=== PATIENT | female | born 1960 | race Caucasian/White ===

== ENCOUNTER 2024-04-21 00:45 | Emergency (ER) | payer BC, SELFPAY ==
[2024-04-21 00:47] VITALS: BP 187/84
[2024-04-21 01:51] LABS: % Basophils 0.2 % (0-2); % Immature Granulocytes 0.2 % (0-0.5); % Lymphocytes 8.3 % (20.5-51.1); % Monocytes 2.8 % (1.7-9.3); % Neutrophils 88.5 % (42.2-75.2); Absolute Lymphocytes 0.8 10^3/uL (1.2-3.4); Absolute Monocytes 0.3 10^3/uL (0.1-0.6); Absolute Neutrophils 8.3 10^3/uL (1.4-6.5); Hematocrit 38.8 % (37.0-47.0); Hemoglobin 13.9 g/dL (12.0-16.0); Mean Corp Hgb Conc. 35.8 g/dL (33.0-37.0); Mean Corpuscular Hgb 32.6 pg (27.0-31.0); Mean Corpuscular Volume 91.1 fL (81.0-99.0); Mean Platelet Volume 9.4 fL (7.4-10.4); Nucleated Red Blood Cells % 0 %; Platelet Count 290 10^3/uL (130-400); Red Blood Cell Count 4.26 10^6/uL (4.20-5.40); Red Cell Dist. Width 12.7 % (11.5-14.5); White Blood Cell Count 9.4 10^3/uL (4.8-10.8)
[2024-04-21 02:03] LABS: ALT (SGPT) 20 U/L (0-35); AST (SGOT) 26 U/L (14-36); Albumin 4.6 g/dl (3.5-5.0); Alkaline Phosphatase 100 U/L (38-126); Blood Urea Nitrogen 14 mg/dl (7-17); Calcium 9.6 mg/dl (8.4-10.2); Carbon Dioxide 25 mmol/L (22-30); Chloride 105 mmol/L (98-107); Glucose 165 mg/dl (70-99); Lipase 47 U/L (23-300); Potassium 4.1 mmol/L (3.5-5.1); Sodium 138 mmol/L (135-145); Total Bilirubin 0.9 mg/dl (0.2-1.3); eGFR > 60.00
--- NOTE | 2024-04-21 02:15 | ED.GENMED ---
History of Present Illness
<LANCE Orr - Last Filed: 04/21/24 07:10>
General
Chief Complaint: Abdominal Symptoms
Source: patient
Exam Limitations: none
Time Seen by Provider: 04/21/24 02:21
Nursing documentation reviewed up to this point in time: agreed with
History of Present Illness
History of Present Illness:
63 year old female presents for evaluation of abdominal pain, nausea, and vomiting x 12 hours. Pt reports that she has a history of chronic diarrhea as well as SIBO which was diagnosed at [facility] 3 years ago per pt. She endorses associated loss of
appetite, and has been unable to keep solids and liquids down. She endorses 10+ bouts of vomiting over the last 12 hours. Pt states her abdominal pain is located in the RUQ and LUQ, and currently rates her pain as 7/10. She has not tried any
medications for her pain. She notes that she has been able to move her bowels over the last 12 hours, and denies diarrhea and blood in the stool. No sick contacts or recent travel reported.
Past History
<LANCE Orr - Last Filed: 04/21/24 07:10>
Past History
ED Past Medical History: None; Negative Hypercholesterolemia, IDDM or NIDDM
ED Past Surgical History: None; Negative Appendectomy
Social History
Tobacco: Non-smoker
Alcohol: Occasional
Drug: None
Personal:
Employment: Employed
Family History
Family History: Other (Noncontributory)
Review of Systems
<LANCE Orr - Last Filed: 04/21/24 07:10>
Review of Systems
Allergies reviewed?: Yes
Constitutional: Reports no symptoms
EENT: Reports no symptoms
Respiratory: Reports no symptoms
Cardiac: Reports no symptoms
ABD/GI: Reports abdominal pain, nausea, vomiting and anorexia
: Reports no symptoms
Musculoskeletal: Reports no symptoms
Skin: Reports no symptoms
Neurological: Reports no symptoms
Endocrine: Reports no symptoms
Hematologic/Lymphatic: Reports no symptoms
Psychiatric: Reports no symptoms
Phy Exam
<LANCE Orr - Last Filed: 04/21/24 07:10>
General Physical Exam
General Presentation: well appearing
General age: appears stated age
General Skin: warm
General Habitus: normal
General Mental: alert
Cardiovascular Exam
Cardiovascular Exam: regular rate/rhythm
Pulmonary Exam
Pulmonary Exam: lungs clear and no respiratory distress
Gastrointestinal Exam
Gastrointestinal Exam: normal bowel sounds, no masses and tender
Palpation: left upper quadrant: Moderate tenderness, right upper quadrant: Moderate tenderness and right lower quadrant: Moderate tenderness
Auscultation of Abdomen: normal
Neurological Exam
Neurological Exam: alert and oriented x3
Skin Exam
Skin Exam: normal color and warm/dry
Course
<LANCE Orr - Last Filed: 04/21/24 07:10>
Orders/Labs/Results
Orders:
Orders
04/21/24 01:45
Complete Blood Count/With Diff Urgent
Comprehensive Metabolic Panel Urgent
Lipase Urgent
04/21/24 03:06
0.9% Sodium Chloride 1000 ml [Nss] 1,000 ml IV BOLUS
Ketorolac [Toradol] 15 mg IV NOW STA
Ondansetron Injectable [Zofran] 4 mg IV NOW STA
Pantoprazole [Protonix IV] 40 mg IV NOW STA
04/21/24 03:07
US Abdomen Complete/Upper Urgent
Comment:
Reason For Exam: acute upper abd pain N/V
Abnormal Lab Results
04/21/24
01:45
MCH 32.6 H pg
(27.0-31.0)
Absolute Neuts (auto) 8.3 H 10^3/uL
(1.4-6.5)
Absolute Lymphs (auto) 0.8 L 10^3/uL
(1.2-3.4)
Neutrophils % 88.5 H %
(42.2-75.2)
Lymphocytes % 8.3 L %
(20.5-51.1)
Glucose 165 H mg/dl
(70-99)
04/21/24 01:45
04/21/24 01:45
Vital Signs
Initial and Last Documented VS:
Initial Vital Signs
Temp Pulse Resp BP Pulse Ox
98.4 F 76 18 187/84 98
04/21/24 00:47 04/21/24 00:47 04/21/24 00:47 04/21/24 00:47 04/21/24 00:47
Last Documented Vital Signs
Temp Pulse Resp BP Pulse Ox
98.0 F 78 16 148/70 94
04/21/24 06:24 04/21/24 03:30 04/21/24 03:30 04/21/24 06:24 04/21/24 06:24
<Elissa Caldwell, DO - Last Filed: 04/21/24 07:09>
Orders/Labs/Results
Orders:
Orders
04/21/24 01:45
Complete Blood Count/With Diff Urgent
Comprehensive Metabolic Panel Urgent
Lipase Urgent
04/21/24 03:06
0.9% Sodium Chloride 1000 ml [Nss] 1,000 ml IV BOLUS
Ketorolac [Toradol] 15 mg IV NOW STA
Ondansetron Injectable [Zofran] 4 mg IV NOW STA
Pantoprazole [Protonix IV] 40 mg IV NOW STA
04/21/24 03:07
US Abdomen Complete/Upper Urgent
Comment:
Reason For Exam: acute upper abd pain N/V
Abnormal Lab Results
04/21/24
01:45
MCH 32.6 H pg
(27.0-31.0)
Absolute Neuts (auto) 8.3 H 10^3/uL
(1.4-6.5)
Absolute Lymphs (auto) 0.8 L 10^3/uL
(1.2-3.4)
Neutrophils % 88.5 H %
(42.2-75.2)
Lymphocytes % 8.3 L %
(20.5-51.1)
Glucose 165 H mg/dl
(70-99)
04/21/24 01:45
04/21/24 01:45
Vital Signs
Initial and Last Documented VS:
Initial Vital Signs
Temp Pulse Resp BP Pulse Ox
98.4 F 76 18 187/84 98
04/21/24 00:47 04/21/24 00:47 04/21/24 00:47 04/21/24 00:47 04/21/24 00:47
Last Documented Vital Signs
Temp Pulse Resp BP Pulse Ox
98.0 F 78 16 148/70 94
04/21/24 06:24 04/21/24 03:30 04/21/24 03:30 04/21/24 06:24 04/21/24 06:24
Karelylt;LANCE Orr - Last Filed: 04/21/24 07:10>
MDM/Problems Addressed
Differential Diagnosis Includes:
pancreatitis, cholecystitis, cholelithiasis, colitis, appendicitis
MDM/Problems Addressed:
Complete Blood Count/With Diff
Comprehensive Metabolic Panel
Lipase
0.9% Sodium Chloride 1000 ml [Nss] 1,000 ml IV BOLUS
Ketorolac [Toradol] 15 mg IV
Ondansetron Injectable [Zofran] 4 mg IV
Pantoprazole [Protonix IV] 40 mg IV
US Abdomen Complete/Upper
<Elissa Caldwell DO - Last Filed: 04/21/24 07:09>
*Radiology
Radiology exam reviewed: radiology read reviewed
*Pulse Oximetry
Patient hypoxic: no
*Critical Care Note
Total Time (30-74mins, 75-104mins- exclusive of procedures): Not Applicable
ED Attending Note
<LANCE Orr - Last Filed: 04/21/24 07:10>
-
Portions of this chart may have been created with voice recognition software.� Occasional wrong word or��sound alike� substitutions may have occurred due to the inherent limitations of voice recognition software.
<Elissa Caldwell DO - Last Filed: 04/21/24 07:09>
ED Attending Note
Patient seen and examined by attending physician: Yes
ED Attending Note:
This is a 63-year-old woman who presents with generalized upper abdominal pain accompanied with nausea and vomiting that began yesterday afternoon.
She admits to intermittent abdominal pain, intermittent diarrhea, follows with GI specialist at [facility]. Previous hospitalization here in 2019, was found to have terminal ileitis with partial small bowel obstruction, concern for
Crohn's disease but colonoscopy and biopsy have been negative. She states she was eventually diagnosed with SIBO via specialist at [facility].
No close contacts with similar symptoms. She denies recent travel nor recent antibiotic use.
She takes no medicines on a daily basis.
She has not had a fever nor chills.
She denies diarrhea. No dysuria and urgency and or hematuria. She denies back pain or flank pain.
GENERAL: 63-year-old woman appears her stated age, awake and alert, pleasant, appears in no acute distress. is accompanying.
EYE: anicteric
NECK: Supple, nontender, no meningismus, no significant adenopathy.
ENT: oral mucosa is moist. No rhinorrhea.
CARDIAC: Regular rate and rhythm. no murmur.
LUNGS: Clear breath sounds bilaterally, no acute respiratory distress, no wheezes/rales/rhonchi
ABDOMEN: Rotund, soft, nondistended, mild to moderate tenderness right upper quadrant as well as mild tenderness epigastric region, no r/g, no cvat. normoactive BS.
NEUROLOGICAL: Alert and oriented x3, no focal neuro deficits. Gait is steady.
SKIN: Warm and dry, normal color, skin intact. No rash.
MUSCULOSKELETAL: No C/C/E. peripheral pulses are full and equal b/l. No palpable tenderness.
PSYCH: Normal and appropriate interaction.
Concern for acute gastroenteritis, acute gastritis, biliary colic/cholecystitis. Small bowel obstruction is less likely. No prior abdominal surgeries.
Labs thus far are unremarkable, reassuring.
Patient has had no recurrent vomiting since arrival to the ED.
Will give Zofran for nausea, Toradol for pain, IV Protonix for potential gastritis and continue IV fluids.
Will check abdominal ultrasound.
04/21/2024 0708 AM
Feeling improved after medications and fluids.
Resting comfortably.
Abdomen is soft without appreciable tenderness.
Abdominal ultrasound is unremarkable.
Will discharge to home with recommendations to limit diet to clear liquids today for potential gastroenteritis.
Prescription for Zofran has been provided for as needed nausea.
May take Tylenol as needed for discomfort.
If diarrhea ensues recommend [id number] Imodium.
Return precautions discussed.
Discharge Plan
Departure
Patient Disposition: Home (Routine Discharge)
Date of Disposition: 04/21/24
Time of Disposition: 07:06
Patient with high blood pressure during this ER visit?: No
Condition: Good
Discharge Problem:
Acute upper abdominal pain, Acute gastroenteritis
Instructions: Viral gastroenteritis in adults, Clear Liquid Diet, Abdominal Pain
Prescriptions:
New
ondansetron 4 mg tablet,disintegrating
4 mg PO QID PRN (Reason: nausea and vomiting) Qty: 20 0RF
Referrals:
Rosette Galindo MD [Family Provider] - Call in 1-3 days for appt
Interventions
Interventions:
*Risk Screen - Suicide Last Done: 04/21/24 00:47
*General Assessment Last Done: 04/21/24 02:07
*Neglect/Abuse Screening Last Done: 04/21/24 00:47
ED- Fall Risk Assessment Last Done: 04/21/24 02:07
*ED COVID-19 Vaccine History Last Done: 04/21/24 02:07
XM-Aoklcm-Gxurbowwjv Assessment Last Done: 04/21/24 02:00
Discharge Date and Time
Print Language: HAITIAN
[2024-04-21] MEDS: NSS 1000 IV (03:10)
[2024-04-21] MEDS: ZOFRAN 4 MG IV (03:25)
[2024-04-21] MEDS: TORADOL 15 MG IV (03:26)
[2024-04-21] MEDS: PROTONIX IV 40 MG IV (03:28)
[2024-04-21 03:30] VITALS: BP 139/68
[2024-04-21 06:24] VITALS: BP 148/70
[2024-04-21 07:28] VITALS: BP 141/67
== END 2024-04-21 07:31 | disposition home or self-care (01) ==
LOC: EMR 00:45
PROVIDERS: EMERGENCY PHYSICIAN Emergency Medicine; FAMILY PHYSICIAN Student in an Organized Health Care Education/Training Program
DX: K52.9 Noninfective gastroenteritis and colitis, unspecified (principal); R10.10 Upper abdominal pain, unspecified
CPT/HCPCS: 99284; 96374; 96375 ×2; 96361; 76700; 80053; 83690; 85025

== ENCOUNTER → 2024-08-28 08:05 | Outpatient (REF) | payer BC, SELFPAY | LOC: HWWDC 08:05 | PROVIDERS: ATTENDING PHYSICIAN Student in an Organized Health Care Education/Training Program | DX: Z12.31 Encounter for screening mammogram for malignant neoplasm of breast (principal) | CPT/HCPCS: 77063; 77067 ==

== ENCOUNTER 2025-06-29 15:52 | Inpatient (IN) | payer BC, SELFPAY ==
[2025-06-29 08:57] VITALS: BP 169/95
--- NOTE | 2025-06-29 09:59 | ED.GENMED ---
History of Present Illness
General
Chief Complaint: Abdominal Pain
Source: patient
Time Seen by Provider: 06/29/25 09:32
History of Present Illness
History of Present Illness:
64-year-old female presents to the emergency room complaining of abdominal pain. Pain began last night. It is there constantly but waxes and wanes in intensity. She has had some nausea vomiting and diarrhea. No fever or chills. Patient has had
similar discomfort a couple times before which turned out to be a viral illness. She denies any previous abdominal surgery. She takes no prescription medications. She did not take anything at home for her discomfort. Nothing particular seems to
make the pain better or worse.
Past History
Past History
ED Past Medical History: None; Negative Hypercholesterolemia, IDDM or NIDDM
ED Past Surgical History: None; Negative Appendectomy
Social History
Tobacco: Non-smoker
Alcohol: Occasional
Drug: None
Personal:
Employment: Employed
Family History
Family History: Other (Noncontributory)
Phy Exam
Physical Exam
Physical Exam:
General: Awake, Alert, Oriented X3. No acute distress.
Vitals: unremarkable
Head: Atraumatic
Eyes: Pupils equal, EOMI
Throat: Airway intact, no exudates, dry mucosa
Neck: Trachea midline
Lungs: Clear and equal b/l
Heart: Regular rate, no murmurs
Abd: Soft, mild tenderness to palpation right middle abdomen, no rebound, No pulsatile mass
Neuro: Nonfocal
Skin: Warm, dry, no rash
Extremities: pulses equal b/l, no edema
Course
Orders/Labs/Results
Orders:
Orders
06/29/25 09:57
CT Abd/Pel (IV only)-DH only Urgent
Comment:
Reason For Exam: right sided abd pain
06/29/25 09:58
0.9% Sodium Chloride 1000 ml [Nss] 1,000 ml IV BOLUS
Ketorolac [Toradol] 15 mg IV NOW STA
06/29/25 09:59
Ondansetron Injectable [Zofran] 4 mg IV NOW STA
06/29/25 10:10
C-Reactive Protein Urgent
Comment: ADD ON
Complete Blood Count/With Diff Urgent
Comprehensive Metabolic Panel Urgent
Lipase Urgent
06/29/25 13:44
Urinalysis Reflex To Culture Urgent
Date Specimen was Collected: 06/29/25
Time Specimen was Collected: 13:42
Urine Microscopic Reflex Cult Urgent
06/29/25 14:50
HYDROmorphone [Dilaudid] 0.5 mg IV NOW STA
06/29/25 Dinner
NPO
Allow oral meds: Yes
Allow clear liquids: No
0.9% Sodium Chloride 1000 ml [Nss] 1,000 ml IV 125 mls/hr
06/29/25 15:28
Admit/Transfer Patient As Directed
Co-Sign Provider:
Level of Care: Inpatient admission
Assign to:: Medical/Surgical
Physician / Group: David Meyer
Diagnosis: SBO
Reason for Hospitalization: SBO
Expected length of stay greater than two midnights?: Yes
ELOS- Estimated Length of Stay in days: 3
I certify the patient meets the requirements for IP care: Yes
PRN Pain Medication Management As Directed
May give lesser potent ordered pain med per pt: Yes
preference::
Protocol:: Medication orders for pain may be administered in a
manner that supports deferring to patient preference
when the pt is:
- Requesting an ordered lesser potent pain medication.
Least to most potent pain medications are defined
as: acetaminophen < NSAID < tramadol < opioids
(morphine, oxycodone, hydromorphone).
- Requesting a lesser dose of the same medication IF
ORDERED.
- Requesting a less intrusive route of administration
if both routes are prescribed by the provider (PO <
IV).
06/29/25 15:29
Code Status As Directed
Resuscitation Status: Full Code
06/29/25 17:50
Acetaminophen [Tylenol] 650 mg PO Q4HPRN PRN
Ketorolac [Toradol] 10 mg IV Q6HPRN PRN
Morphine Sulfate 2 mg IV Q4HPRN PRN
Ondansetron Injectable [Zofran] 4 mg IV Q6HPRN PRN
06/29/25 17:50
Activity As Directed
Activity Level: Ambulate
Gastrointestinal Tubes As Directed
Type: Loup sump
To suction?: Yes
Type of suction: Low intermittent
Irrigate tube?: No
Intake/ Output As Directed
Frequency: Per unit guidelines
Pneumatic Compression Sleeves As Directed
Type: Knee high
Vital Signs As Directed
Frequency: Per unit guidelines
Weight As Directed
Frequency: Once
Comment: on admission
DX Deep Vein Thrombosis Video Routine
06/30/25 06:00
Basic Metabolic Panel IN AM
Complete Blood Count/No Diff IN AM
Abnormal Lab Results
06/29/25 06/29/25
10:10 13:44
MCH 31.7 H pg
(27.0-31.0)
Absolute Neuts (auto) 7.3 H 10^3/uL
(1.4-6.5)
Absolute Lymphs (auto) 0.9 L 10^3/uL
(1.2-3.4)
Neutrophils % 84.9 H %
(42.2-75.2)
Lymphocytes % 9.8 L %
(20.5-51.1)
Carbon Dioxide 21 L mmol/L
(22-30)
Creatinine 0.5 L mg/dL
(0.6-1.0)
Glucose 140 H mg/dl
(70-99)
C-Reactive Protein 15.60 H mg/L
(0.0-10.00)
Urine Ketones 2+ A
(Negative)
Ur Occult Blood Reflex 1+ A
(Negative)
Urine Bacteria (Reflex) Few A
(Negative)
Urine Glucose 1+ A
(Negative)
Urine Albumin (Reflex) 3+ A
(Neg - Trace)
06/29/25 10:10
06/29/25 10:10
Vital Signs
Initial and Last Documented VS:
Initial Vital Signs
Temp Pulse Resp BP Pulse Ox
98.1 F 92 16 169/95 95
06/29/25 08:57 06/29/25 08:57 06/29/25 08:57 06/29/25 08:57 06/29/25 08:57
Last Documented Vital Signs
Temp Pulse Resp BP Pulse Ox
98.1 F 79 16 139/79 99
06/29/25 08:57 06/29/25 14:39 06/29/25 14:39 06/29/25 14:39 06/29/25 14:39
MDM/Problems Addressed
Differential Diagnosis Includes:
Diverticulitis, appendicitis, bowel obstruction
MDM/Problems Addressed:
Patient presents with abdominal pain which is waxing and waning in intensity associate with nausea and vomiting. CT scan shows findings consistent with either an ileus or a early small bowel obstruction. Patient had some improvement in pain with a
dose of Toradol but the pain returned. She is requiring further pain medicine and Zofran. Patient require hospitalization for IV fluids, analgesia and serial abdominal exams.
*Radiology
Radiology exam reviewed: radiology read reviewed
*Pulse Oximetry
SaO2: 95
Oxygen Mode of Delivery: Room air
Patient hypoxic: no
*Critical Care Note
Total Time (30-74mins, 75-104mins- exclusive of procedures): Not Applicable
Patient Management
Social determinants of health affecting care: Strong social support
Discussion with other providers: Hospitalist
ED Attending Note
-
Portions of this chart may have been created with voice recognition software.� Occasional wrong word or��sound alike� substitutions may have occurred due to the inherent limitations of voice recognition software.
Discharge Plan
Departure
Patient Disposition: Admit
Date of Disposition: 06/29/25
Time of Disposition: 14:53
Presentation/result/management discussed w/ accepting MD/DO: Hospitalist
Condition: Fair
Discharge Problem:
SBO (small bowel obstruction)
Interventions
Interventions:
*Risk Screen - Suicide Last Done: 06/29/25 09:38
*General Assessment Last Done: 06/29/25 09:38
*Neglect/Abuse Screening Last Done: 06/29/25 09:38
*ED- Fall Risk Assessment Last Done: 06/29/25 09:38
*ED COVID-19 Vaccine History Last Done: 06/29/25 09:38
*Nursing Disposition Last Done: 06/29/25 17:15
EV-Qtryfz-Tonivejhjn Assessment Last Done: 06/29/25 09:38
Discharge Date and Time
Discharge Date/Time: 06/29/25 17:47
[2025-06-29] MEDS: TORADOL 15 MG IV (10:15)
[2025-06-29] MEDS: ZOFRAN 4 MG IV ×2 (10:15→18:24)
[2025-06-29] MEDS: NSS 1000 IV ×2 (10:16→17:13)
[2025-06-29 10:18] LABS: Hematocrit 42.2 % (37.0-47.0); Hemoglobin 14.6 g/dL (12.0-16.0); Mean Corp Hgb Conc. 34.6 g/dL (33.0-37.0); Mean Corpuscular Volume 91.5 fL (81.0-99.0); Nucleated Red Blood Cells % 0 %; Platelet Count 261 10^3/uL (130-400); Red Cell Dist. Width 12.5 % (11.5-14.5)
[2025-06-29 10:31] LABS: ALT (SGPT) 25 U/L (0-35); AST (SGOT) 25 U/L (14-36); Albumin 4.7 g/dl (3.5-5.0); Alkaline Phosphatase 107 U/L (38-126); Blood Urea Nitrogen 15 mg/dl (7-17); Calcium 9.7 mg/dl (8.4-10.2); Carbon Dioxide 21 mmol/L (22-30); Chloride 105 mmol/L (98-107); Glucose 140 mg/dl (70-99); Lipase 50 U/L (23-300); Potassium 4.3 mmol/L (3.5-5.1); Sodium 136 mmol/L (135-145); Total Protein 7.6 g/dl (6.3-8.2); eGFR > 60.00
[2025-06-29 11:12] VITALS: BP 148/82
[2025-06-29 13:53] LABS: Urine Character Slightly Cloudy (Clear)
[2025-06-29 13:59] LABS: Urine Squamous Cell 16-20 /LPF (Few)
[2025-06-29 14:00] LABS: Urine Red Blood Cell 0-2 /HPF (0-2)
[2025-06-29 14:39] VITALS: BP 139/79
[2025-06-29] MEDS: DILAUDID 0.5 MG IV (14:54)
--- NOTE | 2025-06-29 17:14 | HPS.HSE ---
Family Physician
-
Family Physician: Rosette Galindo MD
Chief Complaint
-
Abdominal pain with nausea and vomiting
History of Present Illness
64-year-old female with no known major medical history of any abdominal surgery, accompanied by the at the bedside presented to the hospital complaining of intractable generalized abdominal pain initially started yesterday and then went away
well this morning she woke up with the pain, moderately severe in nature, localized and it is crampy usually gets worse before she throw up and when she was throwing up it was easing up and getting better, had multiple episodes of nonbloody vomiting
earlier today but none since she has been in the ER, denies any diarrhea or constipation admitted last time she moved her bowels this morning but not passing gas, complaining of abdominal bloating otherwise no fever or chills or any chest pain no
cough or congestion no any recent travel or sick contacts.
Workup in ER, concerning for small bowel obstruction.
She is awake, alert and oriented x 3 hold appropriate conversation and so far declining NG tube specially she is not throwing up anymore.
Medical History
Past Medical History
Past Medical History: Reports Other
Additional Past Medical History:
Past medical history:
Prior history of small bowel obstruction
Surgical history: None
Social history: Lives at home with denies smoking or alcohol or drug use and she is independent.
Family history: Reviewed and noncontributory
Past Surgical History: Reports Other
Social History
Unable to obtain full social history at this time due to: Other
Family History
Family History: Other
Allergies / Home Medications
Allergies reflects when Allergies were last updated in [employer].
Home Medications with original date entered in [employer]
Allergy/Medication List:
Allergies
Allergy/AdvReac Type Severity Reaction Status Date / Time
Penicillins Allergy Rash Verified 06/29/25 08:59
Sulfa (Sulfonamide Allergy Rash Verified 06/29/25 08:59
Antibiotics)
Home Medications
No Meds [No Current Medications] 06/29/25
Review of Systems
-
A 12 point ROS was completed and negative except as noted: Yes
Physical Exam
Vital Signs
Vital Signs
Temp Pulse Resp BP Pulse Ox
98.1 F 79 16 139/79 99
06/29/25 08:57 06/29/25 14:39 06/29/25 14:39 06/29/25 14:39 06/29/25 14:39
Physical exam:
General: Awake, alert and oriented x3, not in distress and holds appropriate conversation.
HEENT: No active discharge, ecchymosis or bruising, moist lips, tongue and mucous membrane.
Eyes: No discharge or red conjunctiva, no nystagmus, pupils are reactive and equal
Neck:Supple, no JVD no bruit no goiter.
Respiratory: Normal AP contour and diameter, normal chest wall movement, normal respiratory effort, no respiratory distress,
Lungs: Good air entry bilaterally, no wheezing or rhonchi, no rales or crackles
Heart: S1, S2 regular, normal rate, no added sound.
Gastrointestinal: Distended and tympanic, absent bowel sounds, soft, nontender, no guarding or rigidity or organomegaly
Musculoskeletal: , no chest wall abnormality or tenderness. All joints and extremities have good range of motion, no muscle tenderness or any joint swelling or tenderness.
Extremities: No pitting edema, good peripheral pulses, good range of motion
Skin: Warm and dry, no ulceration, normal color.
Neurological: Awake, alert and oriented x3, normal mentation, moves extremity freely and no facial droop, speech clear and comprehensive, good muscle tone,
Psychiatric: Normal mood, normal thought and judgment, normal affect,
Physical Exam
Psych: Other
Laboratory Results
-
06/29/25 10:10
06/29/25 10:10
Laboratory Results
Total Bilirubin 0.8 mg/dl (0.2-1.3) 06/29/25 10:10
AST 25 U/L (14-36) 06/29/25 10:10
ALT 25 U/L (0-35) 06/29/25 10:10
Alkaline Phosphatase 107 U/L (38-126) 06/29/25 10:10
Lipase 50 U/L (23-300) 06/29/25 10:10
CT abdominal pelvis:
Mild small bowel dilatation probably due to partial or developing small bowel obstruction. Ileus not excluded. Probable transition point in the mid right abdomen, distal ileum. Inflammation, infection and ischemia in the differential diagnoses for
bowel wall thickening. Progressed bowel dilatation.
Mild free fluid in the pelvis likely reactive. Progressed.
Small hiatal hernia. Stable
Tiny pericardial effusion versus pericardial thickening. New
Data Reviewed
-
CT Scan: Image Personally Visualized and interpreted, Discussed with Patient and Discussed with Family
Lab Data: Labs Reviewed by me, Discussed with Patient and Discussed with Family
Old Records: Reviewed
Impression/Plan
-
IMPRESSION:
62-year-old female with no known major medical history presented to the hospital complaining of crampy abdominal pain started yesterday evening and worse this morning associated with nonbloody vomiting and CAT scan concerning for small bowel
obstruction.
Acute abdominal pain:
Likely secondary to small bowel obstruction
Keep n.p.o.
Offer NG tube but she declined
Surgery consult
IV fluid
Pain and nausea medication
Recheck lab
Encourage ambulation safely.
Small bowel obstruction:
As above
All discussed with the patient and the in detail and expressed understanding of the question answered
CODE STATUS full code
--- NOTE | 2025-06-29 17:15 | CON.GS ---
Consultation
-
Date/Time Consultation Performed: 06/29/25 1715
Requesting Provider: SBO
Medical History
-
Chief Complaint: abdominal pain
History of Present Illness:
Ms Apodaca is a 64 yo female with a h/o recurrent SBO's (2012, 2014, 2019) with prior episodes of terminal ileitis, treatment for SIBO at [facility] and colonoscopy demonstrating initially TI dilation with patulous IC valve and cecal scarring in 2014
followed by scope demonstrating TI stricture in 2021. She has since had a follow up EGD and colonoscopy at [facility] with Dr. Mejia (? in 2022) and is unsure of the results from this study. All biopsies taken have been negative for IBD. She presents
this admission with right mid to lower quadrant pain/tenderness with intermittent cramping which began last night. She vomited a large amount of undigested food this am but has not had any vomiting since although nausea has persisted. She passed 2
loose Bm's this morning and has continued to pass flatus throughout the day. Distention present with tympany. No rebound, rigidity or guarding.
Past Medical History
Past Medical History: Other (SIBO tx at [facility], recurrent SBO's, TI stricture)
Past Surgical History: None and Other (multiple colonoscopies last being around 2022, all biopsies thus far negative for IBD)
Social History
Tobacco: Non-Smoker
Alcohol: Occasional
Personal:
Living: With Family
Family History
Family History: Reviewed & Not Pertinent
Allergies / Home Medications
Allergy/AdvReac Type Severity Reaction Status Date / Time
Penicillins Allergy Rash Verified 06/29/25 08:59
Sulfa (Sulfonamide Allergy Rash Verified 06/29/25 08:59
Antibiotics)
�Medication �Instructions �Recorded �Confirmed �Type
No Meds [No Current Medications] 06/29/25 06/29/25 History
Review of Systems
-
History Source: Patient and Family
All other systems: Negative unless noted
A 10 point review of systems was completed, and was negative except as per HPI.
Physical Exam
Vital Signs
Temp Pulse Resp BP Pulse Ox
98.1 F 79 16 139/79 99
06/29/25 08:57 06/29/25 14:39 06/29/25 14:39 06/29/25 14:39 06/29/25 14:39
06/28/25 06/29/25 06/30/25
06:59 06:59 06:59
Actual Weight 83 kg
Lab Results
06/29/25 10:10
06/29/25 10:10
WBC 8.6 10^3/uL (4.8-10.8) 06/29/25 10:10
Hgb 14.6 g/dL (12.0-16.0) 06/29/25 10:10
Hct 42.2 % (37.0-47.0) 06/29/25 10:10
Plt Count 261 10^3/uL (130-400) 06/29/25 10:10
Abs Immat Gran (auto) 0.0 10^3/uL (0-0.05) 06/29/25 10:10
Neutrophils % 84.9 % (42.2-75.2) H 06/29/25 10:10
Physical Exam
General: Negative Comfortable
HEENT: Normocephalic and Moist Mucous Membranes
Respiratory: Non Labored Respirations
GI: Soft, Tender (moderate to right lower to mid abdomen, no rebound/rigidity/guarding) and Distended
Skin: Warm and Dry
Neuro: Awake, Alert and AO x 3
Psych: Calm
Data Reviewed
-
CT Scan: Image Personally Visualized and interpreted, Report Reviewed by me, Discussed with Physician, Discussed with Patient and Discussed with Family
Labs: Labs Reviewed by me, Discussed with Physician, Discussed with Patient and Discussed with Family
Old Records: Reviewed
Assessment / Plan
-
64 yo female with h/o recurrent sbo, sibo s/p tx at [facility], and TI stricture (biopsies negative for IBD) presenting with n/v/d and abdominal distention. Still passing flatus but with persistent pain, nausea and burping. CT imaging consistent with
pSBO with thickening noted near the TI. No evidence of bowel threat or compromise. Last colonoscopy around 2022 at [facility]. Afebrile. VSS.
Plan:
No plans for emergent surgery at this time, will follow for improvement with medical measures
NPO for bowel rest
Check CRP
Offered NGT for symptomatic relief, pt declines and given CT findings ok to hold off unless develops intractable vomiting
Analgesics/Antiemetics
Request placed for records from recent colonoscopy with Dr. Mejia
Medical management as per primary team, consider GI consult
will follow
--- NOTE | 2025-06-29 18:00 | PTCARENOTE ---
06/29- Patient transferred and oriented to unit without issue. AAOX3 but anxious, mildly agitated. NSS infusing without issue. Skin CDI. MedSurg. Patient requests nausea and pain medication at this time.
[2025-06-29 18:07] LABS: C-Reactive Protein 15.60 mg/L (0.0-10.00)
[2025-06-29 18:13] VITALS: BMI 28.0
[2025-06-29 18:14] VITALS: BP 163/94
--- NOTE | 2025-06-29 18:15 | PTCARENOTE ---
06/29- Patient refuses the NGT at this time. She wants to see how the medication plays out and states while she's still nauseous she has not experienced vomiting while on the floor. Attempted to educate on NGT and treatment, but patient is mildly
anxious and still refuses at this time.
[2025-06-29] MEDS: TORADOL 10 MG IV (18:24)
--- NOTE | 2025-06-29 22:09 | PTCARENOTE ---
Addendum entered by Karine Bowen RN 06/29/25 23:25:
BLEACH TESTER made aware. continuing to monitor.
Addendum entered by Karine Bowen RN 06/29/25 23:11:
Pt. had another episode of emesis. 200cc of brown/green liquid. No c/o pain just nausea. Pt. stated they are starting to feel better. NG tube placement was offered. Pt. refusing at this time. pt. care ongoing.
Original Note:
Pt. had an episode of emesis. Spoke to pt about placement of NG tube and benefits. Pt. stated 'I'm not there yet.' Pt. care ongoing.
[2025-06-29 23:33] VITALS: BP 140/68
[2025-06-30] MEDS: NSS 1000 IV ×2 (01:37→10:09)
[2025-06-30 07:20] VITALS: BP 145/78
[2025-06-30 07:33] LABS: Hematocrit 37.3 % (37.0-47.0); Hemoglobin 12.8 g/dL (12.0-16.0); Mean Corp Hgb Conc. 34.3 g/dL (33.0-37.0); Mean Corpuscular Volume 92.6 fL (81.0-99.0); Platelet Count 243 10^3/uL (130-400); Red Cell Dist. Width 12.8 % (11.5-14.5)
[2025-06-30 07:55] LABS: Blood Urea Nitrogen 19 mg/dl (7-17); Calcium 8.6 mg/dl (8.4-10.2); Carbon Dioxide 26 mmol/L (22-30); Chloride 107 mmol/L (98-107); Estimated Creatinine Clearance 96 ml/min; Glucose 144 mg/dl (70-99); Potassium 4.0 mmol/L (3.5-5.1); Sodium 137 mmol/L (135-145); eGFR > 60.00
[2025-06-30 08:28] LABS: C-Reactive Protein 166.90 mg/L (0.0-10.00)
--- NOTE | 2025-06-30 09:13 | W.PN.HOSP.TC ---
Today's Communication/Plan
-
Send Stool for testing
Empiric Flagyl IV
Follow with surgery recommendations
Add PRN IV Hydralazine
Assessment / Plan
Assessment / Plan
Physical Exam
General: No respiratory distress
HEENT: Normocephalic and Moist Mucous Membranes
Respiratory: Non Labored Respirations
Heart: S1 S2
GI: Soft, Tender and Distended
Skin: Warm and Dry
Neuro: Awake, Alert and AO x 3, she followed commands.
Psych: Calm
62-year-old female with no known major medical history presented to the hospital complaining of crampy abdominal pain started yesterday evening and worse this morning associated with nonbloody vomiting and CAT scan concerning for small bowel
obstruction.
# Partial SBO
Positive diarrhea, no leukocytosis, High neutrophils
She reports diarrhea and pain
Ill Add iV Flagyl
Will order stool testing also
c/w bowel rest, IVF, add IV PPI for gI prophylaxis
Appreciate surgery help
# Mild elevation in BP, could be reactive to pain
Will add PRN low dose hydralazine
Total time spent to see the patient, examine the patient, review data and lab results, discuss treatment plan with patient, nursing staff around 55 minutes
Anticipated Discharge: > 48 hours
Subjective/Interval History
-
Date of Service: June 30, 2025
No chest pain
No sob
No fever
She complains of abdominal pain and diarrhea
Objective Data
-
Labs:
Laboratory Results
06/30/25
06:49
WBC 3.3 L
Hgb 12.8
Hct 37.3
Plt Count 243
Sodium 137
Potassium 4.0
Chloride 107
Carbon Dioxide 26
BUN 19 H
Creatinine 0.6
Glucose 144 H
Calcium 8.6
Vital Signs:
Vital Signs
Temp Pulse Resp BP Pulse Ox
98.4 F 87 16 145/78 96
06/30/25 07:20 06/30/25 07:20 06/30/25 07:20 06/30/25 07:20 06/30/25 07:20
I&O
06/29/25 06/30/25 07/01/25
06:59 06:59 06:59
Intake Total 1735 / 1735
Output Total 200 / 200
Balance 1535 / 1535
--- NOTE | 2025-06-30 10:03 | CM ---
Patient seen at bedside on . Patient stated that she lives with her in a 2 story home. Patient has had recent Hip surgery. Patient stated that she has no DME and her PCP is Dr. Hector. Patient uses [facility]
in [place]. Patient plan is for home with no needs at this time. CM will continue to follow for discharge planning needs.
Plan; home with no needs.
[2025-06-30] MEDS: NSS (PRESERVATIVE FREE) 10 ML IV (10:08)
[2025-06-30] MEDS: PROTONIX IV 40 MG IV (10:09)
[2025-06-30] MEDS: FLAGYL 500 MG 100 IV ×2 (10:10→17:52)
--- NOTE | 2025-06-30 10:14 | W.PN.GS2 ---
Addendum entered and electronically signed by Yung Calzada MD 06/30/25 11:25:
I saw and examined the patient independently.
The resident's documentation was reviewed and I agree with the note, assessment and plan except where noted below.
Comment: 64-year-old female with recurrent small bowel obstruction secondary to terminal ileitis of unclear etiology though working diagnosis after treatment at [facility] was SIBO. She has had multiple colonoscopies which have ruled out IBD/Crohn's.
Symptomatically/clinically improved
Okay for clears, can advance diet as tolerated.
Can begin dispo planning per primary, would recommend she follows up with her group at [facility].
Original Note:
Today's Communication / Plan
-
Advance to clears
Assessment / Plan
-
Patient is a 64-year-old female with a medical history of recurrent bowel obstruction, SIBO presenting on account of sudden onset severe abdominal pain with associated vomiting; nonbilious nonbloody
She has been n.p.o no NG tube as she declined
#Partial SBO
Resolving
Advance to clear liquid diet
Continue monitoring
Subjective Data
-
Date of Service: June 30, 2025
Patient seen mid, midline in bed
Abdominal pain has subsided, no belching no vomiting
Had 3 episodes of nonbilious nonbloody vomitus yesterday, none today
Had 2 episodes of liquid stool early hours of this morning, no flatulence
Objective Data
-
Intake and Output
06/29/25 06/30/25 07/01/25
06:59 06:59 06:59
Intake Total 173 / 1735
Output Total 200 / 200
Balance 1535 / 1535
Intake:
IV fluids (Total) 1734 / 173
IV piggybacks 0 / 0
Output:
Emesis 200 / 200
Other:
Number of approximated LARGE 1
amounts of urine
How many times incontinent 1
MODERATE amount urine
Vital Signs
Temp Pulse Resp BP Pulse Ox
98.4 F 87 16 145/78 96
06/30/25 07:20 06/30/25 07:20 06/30/25 07:20 06/30/25 07:20 06/30/25 07:20
Lab Results
06/30/25 06:49
06/30/25 06:49
Calcium 8.6 mg/dl (8.4-10.2) 06/30/25 06:49
Total Bilirubin 0.8 mg/dl (0.2-1.3) 06/29/25 10:10
AST 25 U/L (14-36) 06/29/25 10:10
ALT 25 U/L (0-35) 06/29/25 10:10
Alkaline Phosphatase 107 U/L (38-126) 06/29/25 10:10
Total Protein 7.6 g/dl (6.3-8.2) 06/29/25 10:10
Albumin 4.7 g/dl (3.5-5.0) 06/29/25 10:10
Physical Exam
-
Comfortable, not in any obvious distress
Abdomen is full moves with respiration, mildly distended
Mild tenderness in the right lumbar region, iliac fossa
Bowel sounds present
Heart sound S1-S2
RS�vesicular breath sounds
Patient has a limon catheter: No
Patient has a central line: No
[2025-06-30 15:15] VITALS: BP 137/72
[2025-06-30 19:29] LABS: Hepatitis C Antibody Negative (Negative)
[2025-06-30 23:10] VITALS: BP 153/75
[2025-07-01] MEDS: FLAGYL 500 MG 100 IV ×2 (02:06→09:59)
[2025-07-01] MEDS: NSS IV (07:18)
[2025-07-01] MEDS: PROTONIX IV 40 MG IV (07:20)
[2025-07-01] MEDS: NSS (PRESERVATIVE FREE) 10 ML IV (07:20)
[2025-07-01 07:30] VITALS: BP 146/76
--- NOTE | 2025-07-01 09:08 | W.PN.HOSP.TC ---
Today's Communication/Plan
-
discharge if tolerates diet
Assessment / Plan
Assessment / Plan
Physical Exam
General: No respiratory distress
HEENT: Normocephalic and Moist Mucous Membranes
Respiratory: Non Labored Respirations
Heart: S1 S2
GI: Soft, not Tender or Distended
Skin: Warm and Dry
Neuro: Awake, Alert and AO x 3, she followed commands.
Psych: Calm
62-year-old female with no known major medical history presented to the hospital complaining of crampy abdominal pain started yesterday evening and worse this morning associated with nonbloody vomiting and CAT scan concerning for small bowel
obstruction.
# Partial SBO
She had Positive diarrhea, no leukocytosis, High neutrophils
She reports improvement, tolerating full liquids, no pain or nausea. Passing gas
s/p IV Flagyl
Negative C Diff, rest is pending
s/p bowel rest, IVF, add IV PPI for GI prophylaxis
Appreciate surgery help
# Mild elevation in BP, could be reactive to pain
Will recommend OP follow up with PCP
Total discharge time spent to see the patient, examine the patient, review data and lab results, discuss discharge plan with patient, nursing staff around 50 minutes
Anticipated Discharge: Today
Subjective/Interval History
-
Date of Service: July 01, 2025
No chest pain
No abd pain
Tolerated diet over night
Objective Data
-
Vital Signs:
Vital Signs
Temp Pulse Resp BP Pulse Ox
98.5 F 75 16 146/76 94
07/01/25 07:30 07/01/25 07:30 07/01/25 07:30 07/01/25 07:30 07/01/25 07:30
I&O
06/30/25 07/01/25 07/02/25
06:59 06:59 06:59
Intake Total 1735 / 1735 200 / 200
Output Total 200 / 200
Balance 1535 / 1535 200 / 200
--- NOTE | 2025-07-01 09:48 | W.PN.GS2 ---
Addendum entered and electronically signed by Khalif Cavanaugh MD 07/01/25 12:40:
Patient seen and examined.
No major complaints. Abdominal symptoms have improved. Tolerated clears. No nausea or vomiting. Passing flatus and soft BMs. Afebrile. Ambulating.
Gen: NAD
Abd: soft, NT, minimal distension, non-peritoneal
Patient is a 64 yo F p/w partial SBO of unclear origin
Clinical improvement. No plans for surgery at this time.
-- LRD
-- OOB/ambulate
-- Dispo pending dietary tolerance
-- Outpatient f/u with [facility]
Original Note:
Today's Communication / Plan
-
Advance to Low res diet
Assessment / Plan
-
Patient is a 64-year-old female with a medical history of recurrent bowel obstruction, SIBO presenting on account of sudden onset severe abdominal pain with associated vomiting; nonbilious nonbloody
Stool studies positive AG for C diff but negative toxin
#Partial SBO
Resolving
Was started on clears yesterday and she tolerated it
To start Low Res diet today
Continue monitoring
Subjective Data
-
Date of Service: July 01, 2025
Patient seen
No new complains
She has no nausea or vomiting, occasionally belching and passing flatus.
Has had one more soft 'pudding' bowel movement this morning after 2 episode of liquid stools yesterday.
Resumed on clears yesterday and tolerated
ROS- Negative
Objective Data
-
Intake and Output
06/30/25 07/01/25 07/02/25
06:59 06:59 06:59
Intake Total 1735 / 1735 200 / 200
Output Total 200 / 200
Balance 1535 / 1535 200 / 200
Intake:
IV fluids (Total) 1735 / 1735
IV piggybacks 0 / 0 200 / 200
Output:
Emesis 200 / 200
Other:
How many times incontinent 1
MODERATE amount urine
Number of approximated SMALL 1
amounts of urine
Number of approximated LARGE 1
amounts of urine
Number of unmeasured liquid
stools
Rectum 1
Vital Signs
Temp Pulse Resp BP Pulse Ox
98.5 F 75 16 146/76 94
07/01/25 07:30 07/01/25 07:30 07/01/25 07:30 07/01/25 07:30 07/01/25 07:30
Lab Results
06/30/25 06:49
06/30/25 06:49
Calcium 8.6 mg/dl (8.4-10.2) 06/30/25 06:49
Total Bilirubin 0.8 mg/dl (0.2-1.3) 06/29/25 10:10
AST 25 U/L (14-36) 06/29/25 10:10
ALT 25 U/L (0-35) 06/29/25 10:10
Alkaline Phosphatase 107 U/L (38-126) 06/29/25 10:10
Total Protein 7.6 g/dl (6.3-8.2) 06/29/25 10:10
Albumin 4.7 g/dl (3.5-5.0) 06/29/25 10:10
Physical Exam
-
Patient has a limon catheter: No
Patient has a central line: No
--- NOTE | 2025-07-01 10:34 | CM ---
Patient for discharge home today with no needs. Patient family member to assist with transportation home. CM will continue to follow for discharge planning needs.
Plan; home with no needs at this time.
[2025-07-01 12:43] VITALS: BP 138/71
--- NOTE | 2025-07-01 13:47 | W.DCSUMMARY ---
Discharge Summary
Discharge Data
Date of Admission: 06/29/25
Date of Discharge: 07/01/25
-
Pending Results: No
Hospital Course
64 years old female presented with abdominal pain. Scan of the abdomen pelvis showed mild to small bowel dilatation consistent with partial small bowel obstruction. Patient was evaluated by surgery. She remained on bowel rest with intravenous
fluid. Patient complained of diarrhea. Stool testing showed C. difficile antigen but not toxin. She was given intravenous Flagyl with good improvement. Patient started to feel better with the resolution of pain and diarrhea. Diet was advanced
slowly. Patient did not have history of C. difficile colitis in the past, no history of sick contact. Patient was given empiric treatment of oral vancomycin for 7 days. Patient remained hemodynamically stable. She did not have fever or
leukocytosis. Patient was discharged home in stable condition.
Discharge Plan
-
Patient Disposition: Home (Routine Discharge)
Discharge Diagnosis/Procedures: Partial small bowel obstruction, resolving. You were seen by surgery.
Acute diarrhea, tested positive for C. difficile antigen but not toxin
Diet: As tolerated
Additional Diets: Low residue diet for 3 days then advance to regular diet as tolerated
Referrals:
Rosette Galindo MD [Family Provider, Internal Medicine] - in one to two weeks
Prescriptions:
New
vancomycin 125 mg capsule
125 mg PO TID Qty: 21 0RF
Discharge Orders:
Discharge Patient (As Directed); Ordered 07/01/25
Ordered By: Korina Stephen
Discharge Date and Time
Print Language: [id number]
== END 2025-07-01 16:10 | disposition home or self-care (01) | DRG 389 ==
LOC: 4 WEST ACU 15:52
PROVIDERS: Nurse Practitioner Family; Registered Nurse; ADMITTING PHYSICIAN Internal Medicine; ATTENDING PHYSICIAN Internal Medicine; CONSULT PHYSICIAN Surgery; EMERGENCY PHYSICIAN Emergency Medicine; FAMILY PHYSICIAN Student in an Organized Health Care Education/Training Program
DX: K56.600 Partial intestinal obstruction, unspecified as to cause (principal); A04.72 Enterocolitis due to Clostridium difficile, not specified as recurrent; R03.0 Elevated blood-pressure reading, without diagnosis of hypertension
CPT/HCPCS: 74177; 80048; 80053; 81003; 81015; 83690; 85025; 85027; 86140; 86803; 87045; 87046; 87324; 87427; 87449; 89055; 96361; 96375; 99285; Q9967

== ENCOUNTER → 2025-09-23 13:02 | Outpatient (REF) | payer SELFPAY | LOC: HWRAD 13:02 | PROVIDERS: ATTENDING PHYSICIAN Student in an Organized Health Care Education/Training Program | DX: E78.00 Pure hypercholesterolemia, unspecified (principal) | CPT/HCPCS: 75571 ==